=== PATIENT | male | born 1995 | race Caucasian/White ===

== ENCOUNTER 2020-10-04 13:18 | Observation (INO) ==
[2020-10-04] MEDS ORDERED: DIPH/TET/ACEL PERT BOOSTER VACCINE 0.5 ML VIAL IM ONE (13:24)
[2020-10-04] MEDS ORDERED: LACTATED RINGERS 1,000 ML IV STA (13:24)
[2020-10-04 14:23] LABS: Basophils % 0.3 % (0.0-0.8); Eosinophils # 0.1 10*3/uL (0.0-0.87); Eosinophils % 1.3 % (0.00-10.9); Hematocrit 38.8 VOL% (42.0-52.0); Hemoglobin 12.8 GM/DL (14.0-18.0); Immature Granulocytes % 0.3 %; Immature Granulocytes Absolute 0.02 #; Lymphocytes # 1.5 10*3/uL (1.4-4.0); Lymphocytes % 19.2 % (21.2-54.2); Mean Corpuscular Volume 89.2 FL (87-102); Mean Platelet Volume 11.5 FL (9.6-12.0); Neutrophils % 68.9 % (38.7-73.9); Platelet Count 142 T/CUMM (130-400); Red Blood Count 4.35 MC/CUMM (3.8-5.5); Red Cell Distribution Width 13.1 % (9.3-17.3); White Blood Count 7.9 T/CUMM (4-12)
[2020-10-04 14:46] LABS: Alanine Aminotransferase 153 U/L (16-61); Albumin 3.4 G/DL (3.4-5.0); Alkaline Phosphatase 64 U/L (45-117); Aspartate Amino Transferase 118 U/L (0-37); Blood Urea Nitrogen 14 MG/DL (7-18); Calcium 8.5 MG/DL (8.5-10.1); Estimated Glom Filtration Rate 136 ML/MIN; Glucose 99 MG/DL (74-106); Osmolality,Calculated 277.5 MOS/KG (273-304); Total Protein 6.8 G/DL (6.4-8.3)
[2020-10-04] MEDS ORDERED: HYDROmorphone 2 MG/1 ML VIAL IV PRN (15:09)
[2020-10-04] MEDS ORDERED: ONDANSETRON 4 MG/2 ML VIAL IV PRN (15:09)
[2020-10-04] MEDS ORDERED: ACETAMINOPHEN 325 MG TABLET PO PRN (15:09)
[2020-10-04] MEDS ORDERED: ALBUTEROL/IPRATROPIUM 3 ML NEB RESP TX PRN (15:09)
[2020-10-04] MEDS ORDERED: BISACODYL 5 MG TABLET PO PRN (15:09)
[2020-10-04] MEDS ORDERED: KETOROLAC 15 MG/1 ML VIAL IV PRN (15:09)
[2020-10-04 16:05] LABS: Bilirubin,Urine Negative (Negative); Blood, Urine Negative (Negative); Glucose,Urine (UA) Negative (Negative); Ketones,Urine Negative (Negative); Nitrite,Urine Negative (Negative); Protein,Urine Negative; RBC,Urine 2 /HPF (0-4); Urine Appearance CLEAR (Clear); Urine Color Straw (Yellow); Urine Specific Gravity 1.021 (1.001-1.035); Urine Urobilinogen < 2.0 EU/DL (0.2-1.0); WBC,Urine <1 /HPF (0-6)
[2020-10-04] MEDS: LACTATED RINGERS 1,000 ML IV SCH (16:05)
[2020-10-04] MEDS: HYDROmorphone 2 MG/1 ML VIAL IV PRN ×2 (16:05→21:05)
[2020-10-04] MEDS: LOSARTAN 50 MG TABLET PO SCH (18:13)
[2020-10-04] MEDS: SIMVASTATIN 10 MG TABLET PO SCH (21:05)
[2020-10-04 21:22] LABS: Barbiturates Screen,Urine Negative (Negative); Benzodiazepines Screen,Urine Negative (Negative); Cannabinoid Screen,Urine Positive (Negative); Opiate Screen,Urine Negative (Negative); Phencyclidine Screen,Urine Negative (Negative)
[2020-10-05 04:22] LABS: Basophils % 0.1 % (0.0-0.8); Eosinophils % 0.5 % (0.00-10.9); Hematocrit 38.2 VOL% (42.0-52.0); Hemoglobin 12.7 GM/DL (14.0-18.0); Immature Granulocytes % 0.5 %; Immature Granulocytes Absolute 0.04 #; Lymphocytes # 2.1 10*3/uL (1.4-4.0); Lymphocytes % 24.7 % (21.2-54.2); Mean Corpuscular HGB Conc 33.2 GM/DL (32-36); Mean Platelet Volume 11.6 FL (9.6-12.0); Monocytes % 11.8 % (1.7-12.7); Neutrophils % 62.4 % (38.7-73.9); Platelet Count 147 T/CUMM (130-400); Red Blood Count 4.34 MC/CUMM (3.8-5.5); Red Cell Distribution Width 13.1 % (9.3-17.3); White Blood Count 8.5 T/CUMM (4-12)
[2020-10-05 04:44] LABS: Calcium 8.6 MG/DL (8.5-10.1); Osmolality,Calculated 271.8 MOS/KG (273-304)
[2020-10-05] MEDS: ENOXAPARIN 40 MG/0.4 ML SYRINGE SUBCUT SCH ×2 (09:35→09:38)
[2020-10-05] MEDS: LOSARTAN 50 MG TABLET PO SCH (09:35)
[2020-10-05] MEDS: PANTOPRAZOLE 40 MG TABLET PO SCH (09:35)
[2020-10-05] MEDS: HYDROmorphone 2 MG/1 ML VIAL IV PRN ×2 (09:49→21:00)
[2020-10-05] MEDS: LACTATED RINGERS 1,000 ML IV SCH ×2 (19:30→21:01)
[2020-10-05] MEDS: SIMVASTATIN 10 MG TABLET PO SCH (21:00)
[2020-10-06] MEDS: ENOXAPARIN 40 MG/0.4 ML SYRINGE SUBCUT SCH (09:23)
[2020-10-06] MEDS: LOSARTAN 50 MG TABLET PO SCH (09:25)
[2020-10-06] MEDS: PANTOPRAZOLE 40 MG TABLET PO SCH (09:25)
[2020-10-06] MEDS: HYDROmorphone 2 MG/1 ML VIAL IV PRN (09:49)
[2020-10-06 12:33] VITALS: BP 134/72
== END 2020-10-06 12:40 ==
LOC: N.ED 13:18 → N.EDINP 13:18 → N.3W 17:00
PROVIDERS: ADMIT Surgery; ATTEND Surgery